=== PATIENT | male | born 1965 | race Caucasian/White ===

== ENCOUNTER → 2016-12-29 | Outpatient (CLI) | payer OTHER ==
[~2016-12-29] VITALS: Ht 185.4 cm; Wt 158.7 kg
[~2016-12-29] MED LIST: CINNAMON BARK PO; FISH OIL 1,0001 EAC7 PO; LIPITOR10 MG PO; LO-DOSE ASPIRIN81 M2 PO; MAGNESIUM PO; NORVASC5 MG PO; POTASSIUM-9999 MG PO; TOPROL XL50 MG PO; VITAMIN D5000 UNI1 PO; ZESTRIL10 MG PO
== END | disposition home or self-care (01) ==
LOC: AMB 13:49
PROC: 0DJD8ZZ Inspection of Lower Intestinal Tract, Via Natural or Artificial Opening Endoscopic (ICD-10-PCS; principal; 2016-12-29)
DX: Z12.11 Encounter for screening for malignant neoplasm of colon (principal); K64.8 Other hemorrhoids; I10 Essential (primary) hypertension; E78.5 Hyperlipidemia, unspecified; E66.9 Obesity, unspecified; Z68.42 Body mass index [BMI] 45.0-49.9, adult; M19.90 Unspecified osteoarthritis, unspecified site; Z79.82 Long term (current) use of aspirin
CPT/HCPCS: 93005; J2250; J3010

== ENCOUNTER → 2017-10-15 | Outpatient (CLI) | payer OTHER | END | disposition home or self-care (01) | LOC: CDC 10:30 | DX: Z01.810 Encounter for preprocedural cardiovascular examination (principal); S63.502D Unspecified sprain of left wrist, subsequent encounter; M25.532 Pain in left wrist; M77.02 Medial epicondylitis, left elbow; R94.31 Abnormal electrocardiogram [ECG] [EKG] | CPT/HCPCS: 93000 ==

== ENCOUNTER 2017-11-07 13:16 | Day surgery (SDC) | payer OTHER ==
[~2017-11-07] VITALS: Ht 185.4 cm; Wt 161.0 kg
[2017-11-07 13:45] VITALS: BP 139/90
[2017-11-07 19:10] VITALS: BP 141/83
[2017-11-07 20:22] VITALS: BP 156/84
== END 2017-11-07 20:38 | disposition home or self-care (01) ==
LOC: SDC 13:16
DX: M77.02 Medial epicondylitis, left elbow (principal); S63.592A Other specified sprain of left wrist, initial encounter; S63.092A Other subluxation of left wrist and hand, initial encounter; I10 Essential (primary) hypertension; R94.31 Abnormal electrocardiogram [ECG] [EKG]; X58.XXXA Exposure to other specified factors, initial encounter; Z79.82 Long term (current) use of aspirin
CPT/HCPCS: J0330; J0690; J1170; J2250; J2405; J3010; S0020